=== PATIENT | female | born 1940 | race Asian ===

== ENCOUNTER → 2016-09-26 | Outpatient (CLI) | payer OTHER ==
[~2016-09-26] MED LIST: ATEN25 PO; CALC1TAB15 PO; FISH1CAP51 PO; LEVO75 PO; SIMV40 PO; VITA1TAB20 PO
== END | disposition home or self-care (01) ==
LOC: RADPV 08:11
PROVIDERS: ATTEND Family Medicine
DX: N28.1 Cyst of kidney, acquired (principal); Z90.710 Acquired absence of both cervix and uterus
CPT/HCPCS: 76700; 76856